=== PATIENT | female | born 1970 | race African-American/Black ===

== ENCOUNTER 2021-10-31 13:44 | Emergency (ER) | payer MEDICAID ==
[~2021-10-31] VITALS: Ht 157.5 cm; Wt 75.0 kg
[2021-10-31 13:57] VITALS: BP 121/85
[2021-10-31 14:32] LABS: BASOPHILS % (AUTO) 0.3 % (0-1); EOSINOPHILS # (AUTO) 0.1 X10'3 (0-0.9); EOSINOPHILS % (AUTO) 1.7 % (0-6); HEMATOCRIT 38.8 % (35.0-45.0); HEMOGLOBIN 12.3 g/dl (12.0-16.0); LYMPHOCYTES # (AUTO) 1.8 X10'3 (1.1-4.8); LYMPHOCYTES % (AUTO) 21.1 % (21-51); MEAN CORPUSCULAR HEMOGLOBIN 26.1 PG (27.0-31.0); MEAN CORPUSCULAR HGB CONC 31.8 g/dL (33.0-36.5); MEAN CORPUSCULAR VOLUME 82.1 FL (78-98); MEAN PLATELET VOLUME 7.8 FL (7.4-10.4); MONOCYTES # (AUTO) 0.9 X10'3 (0-0.9); MONOCYTES % (AUTO) 10.5 % (2-12); NEUTROPHILS # (AUTO) 5.8 X10'3 (1.8-7.7); NEUTROPHILS % (AUTO) 66.4 % (42-75); PLATELET COUNT 349 X10'3 (140-440); RED BLOOD COUNT 4.72 X10'6 (4.20-5.60); RED CELL DISTRIBUTION WIDTH 15.3 % (11.5-14.5); WHITE BLOOD COUNT 8.7 X10'3 (4.5-11.0)
[2021-10-31 14:44] LABS: ALANINE AMINOTRANSFERASE 12 U/L (12-78); ALBUMIN 3.9 G/DL (3.4-5.0); ALKALINE PHOSPHATASE 99 IU/L (46-116); AMYLASE 36 U/L (25-115); ANION GAP 8 (8-16); ASPARTATE AMINO TRANSFERASE 12 U/L (10-37); BILIRUBIN,TOTAL 0.3 MG/DL (0.1-1.0); BLOOD UREA NITROGEN 13 MG/DL (7-18); CALCIUM 10.1 MG/DL (8.5-10.1); CHLORIDE 106 MMOL/L (99-107); GLUCOSE 94 MG/DL (70-104); LIPASE < 50 U/L (73-393); POTASSIUM 3.7 MMOL/L (3.5-5.1); SODIUM 143 MMOL/L (135-145); TOTAL CARBON DIOXIDE 29.3 MMOL/L (24-32); TOTAL PROTEIN 7.9 G/DL (6.4-8.2); eGFR > 90 ML/MIN
[2021-10-31] MEDS ORDERED: ondansetron 4mg rapidly disintigrating tab PO ONE (15:25)
[2021-10-31] MEDS ORDERED: ONDA4TAB12 PO (15:29)
--- NOTE | 2021-10-31 15:56 | NUR ---
po med given
== END 2021-10-31 15:57 | disposition home or self-care (01) ==
LOC: ER 13:45
DX: R11.2 Nausea with vomiting, unspecified (principal); R53.83 Other fatigue; R53.81 Other malaise; R42 Dizziness and giddiness; F41.9 Anxiety disorder, unspecified; F32.A Depression, unspecified; F20.9 Schizophrenia, unspecified; Z56.0 Unemployment, unspecified; Z59.00 Homelessness unspecified; Z88.8 Allergy status to other drugs, medicaments and biological substances; Z79.899 Other long term (current) drug therapy
CPT/HCPCS: 36415; 80053; 82150; 83690; 85025; 93005; 99284

== ENCOUNTER 2021-11-17 01:00 | Emergency (ER) | payer MEDICAID ==
[~2021-11-17 01:00] MED LIST: ONDA4TAB12 PO
[2021-11-17] MEDS ORDERED: FLUO10CA28 PO (11:27)
== END 2021-11-17 01:39 | disposition left against medical advice (07) ==
LOC: ER 01:01
DX: Z76.0 Encounter for issue of repeat prescription (principal); Z53.21 Procedure and treatment not carried out due to patient leaving prior to being seen by health care provider

== ENCOUNTER 2021-11-17 08:38 | Emergency (ER) | payer MEDICAID ==
[~2021-11-17] VITALS: Ht 157.5 cm; Wt 80.0 kg
[2021-11-17] MEDS ORDERED: FLUO10CA28 PO (11:27)
[2021-11-17 11:43] VITALS: BP 135/91
== END 2021-11-17 11:46 | disposition home or self-care (01) ==
LOC: ER 08:39
DX: F20.9 Schizophrenia, unspecified (principal); G47.00 Insomnia, unspecified; Z76.0 Encounter for issue of repeat prescription; F31.9 Bipolar disorder, unspecified; Z59.00 Homelessness unspecified; Z56.0 Unemployment, unspecified; Z88.8 Allergy status to other drugs, medicaments and biological substances; Z79.899 Other long term (current) drug therapy
CPT/HCPCS: 99281

== ENCOUNTER 2021-11-26 13:56 | Emergency (ER) | payer MEDICAID ==
[~2021-11-26] VITALS: Ht 157.5 cm; Wt 176.0 kg
[~2021-11-26 13:56] MED LIST changes: +FLUO10CA28 PO
[2021-11-26 14:00] VITALS: BP 115/76
[2021-11-26] MEDS ORDERED: ibuprofen 200mg tablet PO ONE (14:35)
== END 2021-11-26 15:00 | disposition home or self-care (01) ==
LOC: ER 13:57
DX: M79.604 Pain in right leg (principal); M79.605 Pain in left leg; F31.9 Bipolar disorder, unspecified; F20.9 Schizophrenia, unspecified
CPT/HCPCS: 99282

== ENCOUNTER 2021-11-29 22:48 | Emergency (ER) | payer MEDICAID ==
[~2021-11-29] VITALS: Ht 157.5 cm; Wt 80.0 kg
[2021-11-29 22:52] VITALS: BP 134/87
--- NOTE | 2021-11-30 01:34 | NUR ---
BLOOD SENT TO LAB
[2021-11-30 01:56] LABS: BASOPHILS # (AUTO) 0.1 X10'3 (0-0.2); BASOPHILS % (AUTO) 0.8 % (0-1); EOSINOPHILS # (AUTO) 0.3 X10'3 (0-0.9); EOSINOPHILS % (AUTO) 3.9 % (0-6); HEMATOCRIT 38.7 % (35.0-45.0); HEMOGLOBIN 12.5 g/dl (12.0-16.0); LYMPHOCYTES # (AUTO) 4.2 X10'3 (1.1-4.8); LYMPHOCYTES % (AUTO) 51.1 % (21-51); MEAN CORPUSCULAR HEMOGLOBIN 25.8 PG (27.0-31.0); MEAN CORPUSCULAR HGB CONC 32.3 g/dL (33.0-36.5); MEAN CORPUSCULAR VOLUME 79.9 FL (78-98); MEAN PLATELET VOLUME 8.9 FL (7.4-10.4); MONOCYTES # (AUTO) 0.5 X10'3 (0-0.9); MONOCYTES % (AUTO) 6.3 % (2-12); NEUTROPHILS # (AUTO) 3.1 X10'3 (1.8-7.7); NEUTROPHILS % (AUTO) 37.9 % (42-75); PLATELET COUNT 260 X10'3 (140-440); RED BLOOD COUNT 4.84 X10'6 (4.20-5.60); RED CELL DISTRIBUTION WIDTH 14.7 % (11.5-14.5); WHITE BLOOD COUNT 8.3 X10'3 (4.5-11.0)
[2021-11-30 01:59] LABS: ALANINE AMINOTRANSFERASE 27 U/L (12-78); ALBUMIN/GLOBULIN RATIO 1.1 (1.1-1.5); ALKALINE PHOSPHATASE 77 IU/L (46-116); ANION GAP 6 (8-16); ASPARTATE AMINO TRANSFERASE 19 U/L (10-37); BILIRUBIN,TOTAL 0.4 MG/DL (0.1-1.0); BLOOD UREA NITROGEN 24 MG/DL (7-18); BUN/CREATININE RATIO 31.6 (6.6-38.0); CALCIUM 9.9 MG/DL (8.5-10.1); CHLORIDE 105 MMOL/L (99-107); CREATININE 0.76 MG/DL (0.40-0.90); GLUCOSE 84 MG/DL (70-104); POTASSIUM 3.4 MMOL/L (3.5-5.1); SODIUM 137 MMOL/L (135-145); TOTAL CARBON DIOXIDE 26.2 MMOL/L (24-32); TOTAL PROTEIN 7.6 G/DL (6.4-8.2); eGFR > 90 ML/MIN
[2021-11-30] MEDS ORDERED: CLOT15CR10 TOP (03:10)
== END 2021-11-30 03:19 | disposition home or self-care (01) ==
LOC: ER 22:48
DX: B35.3 Tinea pedis (principal); F31.9 Bipolar disorder, unspecified; F20.9 Schizophrenia, unspecified; Z59.00 Homelessness unspecified
CPT/HCPCS: 71045; 80053; 83880; 85025; 99284

== ENCOUNTER 2021-12-04 19:38 | Emergency (ER) | payer MEDICAID ==
[~2021-12-04] VITALS: Ht 157.5 cm; Wt 68.3 kg
[~2021-12-04 19:38] MED LIST changes: +CLOT15CR10 TOP
[2021-12-04 21:54] LABS: BASOPHILS # (AUTO) 0.1 X10'3 (0-0.2); BASOPHILS % (AUTO) 0.4 % (0-1); EOSINOPHILS # (AUTO) 0.1 X10'3 (0-0.9); EOSINOPHILS % (AUTO) 0.6 % (0-6); HEMATOCRIT 35.3 % (35.0-45.0); HEMOGLOBIN 11.3 g/dl (12.0-16.0); LYMPHOCYTES # (AUTO) 1.8 X10'3 (1.1-4.8); LYMPHOCYTES % (AUTO) 12.6 % (21-51); MEAN CORPUSCULAR HEMOGLOBIN 25.7 PG (27.0-31.0); MEAN CORPUSCULAR VOLUME 80.4 FL (78-98); MEAN PLATELET VOLUME 9.3 FL (7.4-10.4); MONOCYTES % (AUTO) 7.4 % (2-12); NEUTROPHILS # (AUTO) 11.1 X10'3 (1.8-7.7); PLATELET COUNT 264 X10'3 (140-440); RED CELL DISTRIBUTION WIDTH 14.4 % (11.5-14.5); WHITE BLOOD COUNT 14.1 X10'3 (4.5-11.0)
[2021-12-04 22:01] LABS: ALANINE AMINOTRANSFERASE 30 U/L (12-78); ALBUMIN/GLOBULIN RATIO 1.1 (1.1-1.5); ALKALINE PHOSPHATASE 75 IU/L (46-116); ANION GAP 12 (8-16); ASPARTATE AMINO TRANSFERASE 26 U/L (10-37); BILIRUBIN,TOTAL 0.7 MG/DL (0.1-1.0); BLOOD UREA NITROGEN 30 MG/DL (7-18); CALCIUM 9.7 MG/DL (8.5-10.1); CHLORIDE 101 MMOL/L (99-107); CREATININE 0.81 MG/DL (0.40-0.90); GLUCOSE 72 MG/DL (70-104); POTASSIUM 3.4 MMOL/L (3.5-5.1); SODIUM 138 MMOL/L (135-145); TOTAL CARBON DIOXIDE 25.2 MMOL/L (24-32); TOTAL PROTEIN 7.7 G/DL (6.4-8.2); eGFR > 90 ML/MIN
[2021-12-04] MEDS ORDERED: NO HOME MEDS (23:24)
--- NOTE | 2021-12-05 06:30 | NUR ---
PT RESTING ON L SIDE, EFFORTLESS RESPIRATIONS OBSERVED.
--- NOTE | 2021-12-05 08:10 | NUR ---
Pt provided breakfast tray and set up next to bed.
--- NOTE | 2021-12-05 11:23 | NUR ---
Pt brought to EROF from main ER and placed in bed 26.
--- NOTE | 2021-12-05 13:30 | NUR ---
Pt woke and ate lunch. Pt speech is disorganized with flight of ideas. Pt appears cautious and paranoid. She returned to sleep.
--- NOTE | 2021-12-05 13:45 | NUR ---
Urine obtained and sent to lab.
[2021-12-05 13:58] LABS: URINE AMPHETAMINE SCREEN NEGATIVE (Neg); URINE BARBITUATE SCREEN NEGATIVE (Neg); URINE BENZODIAZEPINES SCREEN NEGATIVE (Neg); URINE CANNABINOID SCREEN NEGATIVE (Neg); URINE COCAINE SCREEN NEGATIVE (Neg); URINE METHADONE SCREEN NEGATIVE (Neg); URINE OPIATE SCREEN NEGATIVE (Neg); URINE PHENCYCLIDINE SCREEN NEGATIVE (Neg)
[2021-12-05 14:33] LABS: CLARITY,URINE SLIGHTLY CLOUDY (Clear); COLOR,URINE YELLOW (Yellow); GLUCOSE, URINE NEGATIVE (Neg); KETONES,URINE >=80 mg/dl (Neg); LEUKOCYTE ESTERASE ,URINE NEGATIVE (Neg); NITRITES, URINE NEGATIVE (Neg); OCCULT BLOOD,URINE TRACE-INTACT (Neg); PROTEIN,URINE NEGATIVE (Neg)
[2021-12-05 14:34] LABS: UA COLLECTION TYPE OTHER
[2021-12-05 14:42] LABS: BACTERIA,URINE FEW /HPF (Neg); MUCUS STRANDS NONE SEEN /LPF (Neg); RBC,URINE 0-2 /HPF (0-2); SQUAMOUS EPITHELIAL CELL,UR MODERATE /LPF (FEW); WBC,URINE 0-4 /HPF (0-4)
--- NOTE | 2021-12-05 15:13 | NUR ---
Pt remains in bed sleeping w/o distress.
--- NOTE | 2021-12-05 17:46 | NUR ---
Pt seen by [facility] and placed on a 5150 hold. Pt remains in bed resting and sleeping intermitently.
--- NOTE | 2021-12-05 19:50 | NUR ---
Patient presents with disorganized thought..Paranoia is present. Patient reminded that she met this magnetic tape typewriter operator in triage, the patient denies this. The patient was offered food, the patient declines. She presents as disheveled looking.
--- NOTE | 2021-12-05 21:18 | NUR ---
Patient awoke and was medication compliant. Patient consumed an Ensure drink and returned to sleep.
--- NOTE | 2021-12-05 21:29 | NUR ---
Patient remains awake and disorganized. She accepts an apple juice but will not allow this database report writer to open it for her.
--- NOTE | 2021-12-06 00:57 | NUR ---
Nurse to Nurse given to CHARY Andrade at [facility] in [place]. A urine HCG was ordered for placeent.
[2021-12-06 01:22] LABS: URINE HCG NEGATIVE (NEG)
--- NOTE | 2021-12-06 01:51 | NUR ---
Patient is desheviled, hypomanic, dellusional, paranoid too. She mostly exhibits disorganized thought. Patient is uncooperative with care. Patient has not slept for more than a few minutes at a time since arriving in the ED. Dr Davis will be consulted.
[2021-12-06] MEDS ORDERED: OLANZapine **IM** 10 mg inj. IM ONE (02:05)
[2021-12-06] MEDS ORDERED: LORazepam 2 mg/ml vial IM ONE (02:05)
[2021-12-06] MEDS ORDERED: diphenhydrAMINE 50 mg/ml inj IM ONE (02:05)
--- NOTE | 2021-12-06 02:39 | NUR ---
Patient cooperated with IM Ativan, Zyprexa, and Benadryl.
--- NOTE | 2021-12-06 03:06 | NUR ---
Patient standing in room, she is swearing at staff. Sedation has not taken effect yet.
--- NOTE | 2021-12-06 03:38 | NUR ---
Patient has finally gone to sleep. No distress noted.
--- NOTE | 2021-12-06 18:41 | NUR ---
PT RESTING IN BED WITH NO SIGN OF DISTRESS, EVEN UNLABORED RESPIRATIONS
--- NOTE | 2021-12-06 19:29 | NUR ---
pt did not eat any of her food tray stating "i didn't ask for any of this, they gave me nothing i like, BYE!"
--- NOTE | 2021-12-06 23:00 | NUR ---
PT RESTING IN BED
--- NOTE | 2021-12-07 04:02 | NUR ---
PT RESTING IN BED WITH HEAD AT FOOT OF BED AND BLANKETS OVER HEAD. PT WAS UP FOR PERIODS OF TIME AND WAS RAMBLING AND YELLING "BITCH" AT STAFF THEY WOULD WALK BY. PT IS NOW SEEMING TO BE ASLEEP WITH EVEN UNLABORED RESPIRATIONS
--- NOTE | 2021-12-07 06:50 | NUR ---
Recieved pt. ambulatory, slightly agitated, responding to IS, pacing and paranoid. Provider notified.
--- NOTE | 2021-12-07 08:50 | NUR ---
Pt. pacing , responding to IS, walking by scientific writer and singing lodly while making intense eye contact. Pt. appears to be elevating.
[2021-12-07] MEDS ORDERED: LORazepam 1 MG tablet PO ONE (09:20)
[2021-12-07] MEDS: OLANZapine 2.5MG tablet PO SCH (09:26)
--- NOTE | 2021-12-07 10:50 | NUR ---
Pt. has become hard to be redirected and using an elevated voice.Provider notified.
[2021-12-07] MEDS ORDERED: diphenhydrAMINE 25mg capsule PO ONE (11:10)
--- NOTE | 2021-12-07 12:50 | NUR ---
Pt. awake and drinking water at the bedside, no c/o pain, not responding to IS
--- NOTE | 2021-12-07 14:50 | NUR ---
Pt. asleep laying on her Right side, no distress noted.
--- NOTE | 2021-12-07 16:50 | NUR ---
Pt. asleep on her back in her bed, no s/sx of distress, normal respiratory pattern
--- NOTE | 2021-12-07 19:23 | NUR ---
Patient speaking to self underneath blankets, responding to I/S. Spoke to Dr Hernández about pt lack of sleep and present behavior, 10mg Zyprexa ordered for 2100.Pt currently lying in bed quietly under blankets.
[2021-12-07] MEDS ORDERED: OLANZapine 2.5MG tablet PO ONE (21:00)
--- NOTE | 2021-12-07 21:12 | NUR ---
Patient lying down quietly underneath blankets.
--- NOTE | 2021-12-07 22:54 | NUR ---
The patient appears to be sleeping at this time.
--- NOTE | 2021-12-08 02:52 | NUR ---
Thge patient appears to be sleepimg at this time.
--- NOTE | 2021-12-08 04:07 | NUR ---
Patient woke up demanding to see her doctor. Patient was reminded that it was 0400 in the morning. Patient cussed at staff and then got up to make bed while mumbling to self.
[2021-12-08] MEDS: OLANZapine 2.5MG tablet PO PRN ×2 (04:48→20:51)
--- NOTE | 2021-12-08 04:54 | NUR ---
Patient behavior escalated. Patient demanded a chair be put in her room at 0430 and began dragging it acrosss the floor. Patient then refused to take PRN Zyprexa ordered by for aggkevin. Patient eventually conceded and took Zyprexa and laid down soon after.
--- NOTE | 2021-12-08 06:43 | NUR ---
Received Pt in bed awake with sheet over her head. Pt rocking and mumbling to self at times.
--- NOTE | 2021-12-08 09:05 | NUR ---
Pt ate part of her breakfast and refused AM med. Pt mumbles to self as she walks around and is rude, often calling staff names and cursing. Pt not aggressive toward staff or others.
[2021-12-08] MEDS: OLANZapine 2.5MG tablet PO SCH (09:20)
--- NOTE | 2021-12-08 11:20 | NUR ---
Pt in bed with sheet on her head and resting.
--- NOTE | 2021-12-08 14:05 | NUR ---
Pt pacing halls talking to self. This RN spoke with nurse from [facility] r/t possible acceptance.
--- NOTE | 2021-12-08 16:22 | NUR ---
Pt pacing around unit and mumbling to self. Pt not aggressive, but stares at staff as she walks by glaringly.
--- NOTE | 2021-12-08 19:01 | NUR ---
PT IS RUBBING TOOTHPASTE IN HER HAIR. WHEN RN ASKED IF SHE WANTED SHAMPOO, PT BECAME AGITATED AND SAID "MIND YOUR BUSINESS! BYE!" IN AN AGGRESSIVE MANER
--- NOTE | 2021-12-08 20:51 | NUR ---
SECURITY AT BEDSIDE FOR MED PASS. PT CALLED RN "BITCH" SEVERAL TIMES. PT ULTIMATELY TOOK MEDICATIONS AND RN BROUGHT PT A SNACK.
--- NOTE | 2021-12-08 21:00 | NUR ---
PT IS UP AND PACING AND MUTTERING "BITCH" UNDER HER VOICE
--- NOTE | 2021-12-08 21:18 | NUR ---
PT IS NOW BACK IN BED WITH BLANKET OVER HER HEAD. SHE IS NO LONGER MUTTERING. EQUAL RISE AND FALL OF CHEST NOTED
--- NOTE | 2021-12-08 21:52 | NUR ---
PT AWAKE, LAYING IN BED, AND SAYING PROFANITIES TO NURSE. "FUCK YOU BITCH" "COME TALK TO ME" "BRING ME MORE SONIYA CORNEJO BITKRISTA." NURSE IGNORED PATIENT'S ATTENTION SEEKING BEHAVIOR AND SHE COVERED HER HEAD WITH HER BLANKET AND LAID BACK DOWN. Addendum: 12/08/21 at 2157 by KISHA PT IS STILL TALKING ACROSS ROOM AND IS HAVING PARANOID DELUSIONS THAT RN AND TECH ARE TALKING ABOUT HER WHEN WE ARE NOT TALKING AT ALL
--- NOTE | 2021-12-08 22:54 | NUR ---
Patient slept for a short while and is now awake and yelling "bitch shut the fuck up" to the nurses station for no apparent reason. She is rambling about other nonsensical things but remains laying in bed with her blanket over her head.
--- NOTE | 2021-12-08 23:42 | NUR ---
Patient was up to use the restroom and is now back in bed
--- NOTE | 2021-12-09 00:03 | NUR ---
Patient is up and pacing and staring at nurse and tech stating "don't worry about it."
--- NOTE | 2021-12-09 02:00 | NUR ---
Patient is sleeping on right side, equal rise and fall of chest noted
--- NOTE | 2021-12-09 04:28 | NUR ---
Patient laying in bed with blanket over her head. Equal rise and fall of chest noted
--- NOTE | 2021-12-09 05:22 | NUR ---
Patient is up walking and seems calm. She is looking down as compared to the challenging eye contact she usually makes when she paces.
--- NOTE | 2021-12-09 05:40 | NUR ---
Tech attempted to take vitals on pt and pt stated "Vitals? I don't think so. GOODBYE" and refused vitals
--- NOTE | 2021-12-09 06:30 | NUR ---
PATIENT RECEIVED SLEEPING IN HER ROOM AT CHANGE OF SHIFT. RESPIRATIONS EVEN, UNLABORED. NO S/S OF DISTRESS. WILL CONTINUE TO MONITOR.
--- NOTE | 2021-12-09 08:35 | NUR ---
PATIENT OBSERVED PACING AROUND THE UNIT NOTED RESPONDING TO INTERNAL STIMULI. PATIENT NOTED STATING "BITCH" REPEATEDLY TOWARD STAFF. PATIENT ALSO NOTED GLARING AT STAFF, MAKING DIRECT EYE CONTACT WHILE PACING PAST NURSES STATION. SHE WAS PROVIDED WITH A MEAL TRAY TO HER ROOM. NO COMPLAINTS OR CHANGES NOTED AT THIS TIME.
[2021-12-09] MEDS: OLANZapine 2.5MG tablet PO SCH (09:37)
--- NOTE | 2021-12-09 10:30 | NUR ---
PATIENT CONTINUES PACING THROUGHOUT THE UNIT OBSERVED RESPONDING TO INTERNAL STIMULI. SHE IS NOTED TO BE IRRITABLE WHEN APPROACHED BY STAFF, STATING "FINE BITCH!" TOWARD STAFF. PATIENT REQUIRING REDIRECTION AWAY FROM ANOTHER PEER ON THE UNIT AFTER CALLING PEER A BITCH. SHE IS NOTED TO BE INAPPROPRIATE YET EASILY REDIRECTABLE.
--- NOTE | 2021-12-09 12:36 | NUR ---
PATIENT IS OBSERVED RESTING IN HER BED WITH A BLANKET OVER HER HEAD. PATIENT OBSERVED TALKING TO HERSELF UNDER THE BLANKET, MAKING NONSENSICAL STATEMENTS. RESPIRATIONS EVEN, UNLABORED. NO S/S OF DISTRESS.
--- NOTE | 2021-12-09 14:30 | NUR ---
PATIENT IS OBSERVED PACING AROUND THE UNIT CURSING AND STARING AT STAFF. PATIENT REQUIRES REDIRECTION BACK TO HER ROOM. WILL CONTINUE TO MONITOR.
[2021-12-09 14:38] VITALS: BP 146/87
--- NOTE | 2021-12-09 14:58 | NUR ---
RECEIVED CALL FROM [facility] IN [place] WITH ACCEPTING INFORMATION. PATIENT ACCEPTED BY DR. ALDO RYAN AT 1450. PENDING TRANSPORTATION TIME.
[2021-12-09] MEDS ORDERED: LORazepam 1 MG tablet PO ONE (15:10)
[2021-12-09] MEDS: OLANZapine 2.5MG tablet PO PRN (15:13)
--- NOTE | 2021-12-09 15:47 | NUR ---
PATIENT PICKED UP FROM ER OVERFLOW FOR TRANSFER AT APPROXIMATELY 1547. PATIENT BEING TRANSFERRED TO [facility] IN [place] BY [facility] SUPERVISOR PHOTOSTAT. PERSONAL BELONGINGS RETURNED TO PATIENT. ALLOWED OPPORTUNITY FOR ALL QUESTIONS TO BE ANSWERED. PATIENT ESCORTED FROM UNIT BY HOSPITAL SECURITY AND [facility] FLIGHT OPERATIONS ENGINEER. NO S/S OF DISTRESS NOTED. PATIENT PROVIDED WITH A HOMELESS SAC LUNCH FOR CAR RIDE TO [place]. SHE LEFT THE HOSPITAL WITHOUT INCIDENT.
== END 2021-12-09 15:47 ==
LOC: ER 19:38
DX: F20.9 Schizophrenia, unspecified (principal); Z20.822 Contact with and (suspected) exposure to COVID-19; I10 Essential (primary) hypertension; F41.9 Anxiety disorder, unspecified; F32.A Depression, unspecified; Z56.0 Unemployment, unspecified; Z59.00 Homelessness unspecified; Z88.8 Allergy status to other drugs, medicaments and biological substances; Z79.899 Other long term (current) drug therapy; Z91.14 Patient's other noncompliance with medication regimen
CPT/HCPCS: 36415; 80053; 80305; 81001; 81025; 84443; 85025; 87635; 96372; 99285; C9803

== ENCOUNTER → 2021-12-31 | Emergency (ER) | payer SELFPAY ==
[~2021-12-31] VITALS: Ht 157.5 cm; Wt 68.1 kg
[~2021-12-31] MED LIST changes: -CLOT15CR10 TOP; -FLUO10CA28 PO; +NO HOME MEDS; -ONDA4TAB12 PO
[2021-12-31 20:51] VITALS: BP 112/72
--- NOTE | 2021-12-31 21:50 | NUR ---
NOT IN LOBBY 1
--- NOTE | 2021-12-31 22:35 | NUR ---
NOT IN LOBBY 2
--- NOTE | 2022-01-01 00:25 | NUR ---
NOT IN LOBBY 3
== END | disposition left against medical advice (07) ==
LOC: ER 20:47
DX: R45.851 Suicidal ideations (principal); Z53.21 Procedure and treatment not carried out due to patient leaving prior to being seen by health care provider

== ENCOUNTER 2022-01-01 04:54 | Emergency (ER) | payer MEDICAID ==
[~2022-01-01] VITALS: Ht 157.5 cm; Wt 68.2 kg
[2022-01-01 06:29] VITALS: BP 131/86
--- NOTE | 2022-01-01 06:37 | NUR ---
PT UNABLE TO GIVE URINE SAMPLE AT THIS TIME
[2022-01-01 07:53] LABS: CLARITY,URINE CLEAR (Clear); COLOR,URINE YELLOW (Yellow); GLUCOSE, URINE NEGATIVE (Neg); KETONES,URINE 15 mg/dl (Neg); LEUKOCYTE ESTERASE ,URINE SMALL (Neg); NITRITES, URINE NEGATIVE (Neg); OCCULT BLOOD,URINE SMALL (Neg); PH,URINE 5.5 (4.8-8.0); PROTEIN,URINE NEGATIVE (Neg); UROBILINOGEN,URINE 0.2 E.U/dL (0.2-1.0)
[2022-01-01 07:54] LABS: URINE HCG NEGATIVE (NEG)
[2022-01-01 08:05] LABS: UA COLLECTION TYPE CLN CATCH MIDSTREAM
[2022-01-01 08:29] LABS: SQUAMOUS EPITHELIAL CELL,UR MANY /LPF (FEW)
[2022-01-01 08:30] LABS: BACTERIA,URINE 1+ /HPF (Neg); HYALINE CASTS 0-3 /LPF (NEGATIVE); MUCUS STRANDS MODERATE /LPF (Neg); RBC,URINE 0-2 /HPF (0-2)
== END 2022-01-01 09:42 | disposition home or self-care (01) ==
LOC: ER 04:55
DX: R30.0 Dysuria (principal); I10 Essential (primary) hypertension; F31.9 Bipolar disorder, unspecified; Z56.0 Unemployment, unspecified; F20.9 Schizophrenia, unspecified; Z59.00 Homelessness unspecified; Z88.8 Allergy status to other drugs, medicaments and biological substances
CPT/HCPCS: 81001; 81025; 99283

== ENCOUNTER 2022-01-02 00:11 | Emergency (ER) | payer MEDICAID ==
[~2022-01-02] VITALS: Ht 157.5 cm; Wt 84.1 kg
== END 2022-01-02 00:37 | disposition left against medical advice (07) ==
LOC: ER 00:12
DX: R63.8 Other symptoms and signs concerning food and fluid intake (principal); Z53.21 Procedure and treatment not carried out due to patient leaving prior to being seen by health care provider

== ENCOUNTER 2022-01-06 21:35 | Emergency (ER) | payer MEDICAID ==
[~2022-01-06] VITALS: Ht 157.5 cm; Wt 77.3 kg
[2022-01-06 21:39] VITALS: BP 134/88
== END 2022-01-07 02:22 | disposition left against medical advice (07) ==
LOC: ER 21:36
DX: F29 Unspecified psychosis not due to a substance or known physiological condition (principal); Z53.21 Procedure and treatment not carried out due to patient leaving prior to being seen by health care provider

== ENCOUNTER 2022-03-09 03:32 | Emergency (ER) | payer SELFPAY ==
[~2022-03-09] VITALS: Ht 157.5 cm; Wt 77.3 kg
[2022-03-09 03:56] VITALS: BP 142/88
== END 2022-03-09 04:05 | disposition left against medical advice (07) ==
LOC: ER 03:33
DX: Z00.8 Encounter for other general examination (principal); Z53.21 Procedure and treatment not carried out due to patient leaving prior to being seen by health care provider

== ENCOUNTER 2022-04-02 06:11 | Emergency (ER) | payer SELFPAY ==
[~2022-04-02] VITALS: Ht 157.5 cm; Wt 71.3 kg
[2022-04-02 06:38] VITALS: BP 135/77
== END 2022-04-02 15:39 | disposition left against medical advice (07) ==
LOC: ER 06:12
DX: M25.571 Pain in right ankle and joints of right foot (principal); Z53.21 Procedure and treatment not carried out due to patient leaving prior to being seen by health care provider

== ENCOUNTER 2022-04-08 23:12 | Emergency (ER) | payer SELFPAY ==
[~2022-04-08] VITALS: Ht 162.6 cm; Wt 59.1 kg
[2022-04-08 23:22] VITALS: BP 146/92
== END 2022-04-09 07:12 | disposition left against medical advice (07) ==
LOC: ER 23:12
DX: Z00.00 Encounter for general adult medical examination without abnormal findings (principal); Z53.21 Procedure and treatment not carried out due to patient leaving prior to being seen by health care provider

== ENCOUNTER 2022-04-22 03:35 | Emergency (ER) | payer SELFPAY ==
[~2022-04-22] VITALS: Ht 157.5 cm; Wt 72.7 kg
[2022-04-22 04:25] VITALS: BP 138/88
== END 2022-04-22 10:00 | disposition left against medical advice (07) ==
LOC: ER 03:36
DX: F20.9 Schizophrenia, unspecified (principal); J45.909 Unspecified asthma, uncomplicated; I10 Essential (primary) hypertension; F41.9 Anxiety disorder, unspecified; Z56.0 Unemployment, unspecified; Z59.00 Homelessness unspecified; Z88.8 Allergy status to other drugs, medicaments and biological substances; Z79.899 Other long term (current) drug therapy
CPT/HCPCS: 99281

== ENCOUNTER 2022-04-23 05:42 | Emergency (ER) | payer SELFPAY ==
[~2022-04-23] VITALS: Ht 157.5 cm; Wt 58.5 kg
[2022-04-23 07:32] VITALS: BP 120/75
== END 2022-04-23 07:57 | disposition home or self-care (01) ==
LOC: ER 05:43
DX: F20.9 Schizophrenia, unspecified (principal); I10 Essential (primary) hypertension; Z88.8 Allergy status to other drugs, medicaments and biological substances; Z56.0 Unemployment, unspecified; Z59.00 Homelessness unspecified
CPT/HCPCS: 99281; 99283

== ENCOUNTER 2022-05-02 22:19 | Emergency (ER) | payer SELFPAY ==
[~2022-05-02] VITALS: Ht 152.4 cm; Wt 67.0 kg
[2022-05-02 23:22] VITALS: BP 133/73
[2022-05-02 23:48] LABS: BASOPHILS # (AUTO) 0.1 X10'3 (0-0.2); BASOPHILS % (AUTO) 1.5 % (0-1); EOSINOPHILS # (AUTO) 0.4 X10'3 (0-0.9); EOSINOPHILS % (AUTO) 4.3 % (0-6); HEMATOCRIT 34.4 % (35.0-45.0); HEMOGLOBIN 11.3 g/dl (12.0-16.0); LYMPHOCYTES # (AUTO) 4.3 X10'3 (1.1-4.8); MEAN CORPUSCULAR HEMOGLOBIN 26.6 PG (27.0-31.0); MEAN CORPUSCULAR HGB CONC 32.8 g/dL (33.0-36.5); MEAN CORPUSCULAR VOLUME 81.1 FL (78-98); MEAN PLATELET VOLUME 7.8 FL (7.4-10.4); MONOCYTES # (AUTO) 0.7 X10'3 (0-0.9); MONOCYTES % (AUTO) 7.6 % (2-12); NEUTROPHILS # (AUTO) 3.5 X10'3 (1.8-7.7); NEUTROPHILS % (AUTO) 38.6 % (42-75); PLATELET COUNT 334 X10'3 (140-440); RED BLOOD COUNT 4.24 X10'6 (4.20-5.60); RED CELL DISTRIBUTION WIDTH 14.9 % (11.5-14.5)
[2022-05-03 00:05] LABS: ALANINE AMINOTRANSFERASE 16 U/L (12-78); ALBUMIN 3.6 G/DL (3.4-5.0); ALBUMIN/GLOBULIN RATIO 1.1 (1.1-1.5); ALKALINE PHOSPHATASE 70 IU/L (46-116); ANION GAP 13 (8-16); ASPARTATE AMINO TRANSFERASE 21 U/L (10-37); BILIRUBIN,TOTAL 0.2 MG/DL (0.1-1.0); BLOOD UREA NITROGEN 24 MG/DL (7-18); BUN/CREATININE RATIO 30.4 (6.6-38.0); CALCIUM 9.6 MG/DL (8.5-10.1); CHLORIDE 108 MMOL/L (99-107); CREATININE 0.79 MG/DL (0.40-0.90); ETHANOL < 0.010 GM/DL (0.0-0.010); GLUCOSE 108 MG/DL (70-104); POTASSIUM 3.5 MMOL/L (3.5-5.1); SODIUM 146 MMOL/L (135-145); TOTAL CARBON DIOXIDE 24.8 MMOL/L (24-32); TOTAL PROTEIN 6.9 G/DL (6.4-8.2); eGFR > 90 ML/MIN
--- NOTE | 2022-05-03 00:22 | NUR ---
The patient moved to bed 20 in the ER overflow. She was easily agitated. SHe reports A/V hallucinations. She was paranoid and guarded and refused to answer questions after only a few minutes. She stated that she has taken medications in the past but not recently. When asked what she had been on in the past she stated depakote but would not elaborate. She is unable to verbalize a plan for food, prison or clothing.
--- NOTE | 2022-05-03 00:49 | NUR ---
The patient is easily agitated and currently is refusing to give urine sample at this time.
[2022-05-03] MEDS ORDERED: olanzapine 10mg tablet PO SCH (00:50)
--- NOTE | 2022-05-03 01:06 | NUR ---
The patient is loud and uncooperative. She refused medications and stated that the doctor was a real doctor.
--- NOTE | 2022-05-03 01:10 | NUR ---
Patient hyperverbal and making bizarre statements. "I'm not homosexual. I'm not bisexual. I'm not even curious"
--- NOTE | 2022-05-03 01:13 | NUR ---
made aware that the patient refused medications.
--- NOTE | 2022-05-03 02:02 | NUR ---
The patient appears to be sleeping
--- NOTE | 2022-05-03 03:23 | NUR ---
The patient appears to be sleeping
--- NOTE | 2022-05-03 03:37 | NUR ---
PATIENT'S PACKET WAS SENT TO [facility].
--- NOTE | 2022-05-03 05:00 | NUR ---
The patient is resting on her bed. She is periodically heard talking to herself.
--- NOTE | 2022-05-03 05:07 | NUR ---
The patient refused her am vital signs and was angry when approached.
--- NOTE | 2022-05-03 06:24 | NUR ---
Patient laying in bed on her left side with sheet over her head. No distress observed. Continue to monitor.
--- NOTE | 2022-05-03 07:48 | NUR ---
Patient sitting up in bed eating breakfast. Still pending a urine. RN has a hat in the toilet awaiting patient Continue to monitor.
--- NOTE | 2022-05-03 07:53 | NUR ---
Patient eating breakfast and appears to be responding to internal stimuli. Continue to monitor.
--- NOTE | 2022-05-03 09:10 | NUR ---
Patient placed on a 5150 by OANH Aguilar. Patient appears very disorganized and responding to internal stimuli. Continue to monitor.
--- NOTE | 2022-05-03 10:37 | NUR ---
Patient sitting in bed and gets up often to pace. Patient was making boop, beep sounds and also appears to be responding to internal stimuli. Continue to monitor.
--- NOTE | 2022-05-03 12:20 | NUR ---
Patient eating lunch. No distress observed. Continue to monitor.
--- NOTE | 2022-05-03 14:09 | NUR ---
Patient pacing and sitting in her room. Patient is a little agitated. Continue to monitor.
--- NOTE | 2022-05-03 16:55 | NUR ---
Patient watching T.V. No distress observed. Continue to monitor.
[2022-05-03 17:32] LABS: CLARITY,URINE SLIGHTLY CLOUDY (Clear); COLOR,URINE YELLOW (Yellow); GLUCOSE, URINE NEGATIVE (Neg); KETONES,URINE NEGATIVE (Neg); LEUKOCYTE ESTERASE ,URINE NEGATIVE (Neg); NITRITES, URINE NEGATIVE (Neg); OCCULT BLOOD,URINE NEGATIVE (Neg); PROTEIN,URINE NEGATIVE (Neg); URINE HCG NEGATIVE (NEG); UROBILINOGEN,URINE 0.2 E.U/dL (0.2-1.0)
[2022-05-03 17:33] LABS: UA COLLECTION TYPE CLN CATCH MIDSTREAM
--- NOTE | 2022-05-03 17:35 | NUR ---
Patient in her room at the side of the bed. Patient's scarf is off. RN asked to look at patient's hair. Patient got angry and would not let RN look closely at hair. RN looking for any infestation. None seen but only from a distance and only able to see the front of her hair. It look like patient is losing some of her hair. RN got called a bitch for wanting to see patient's hair. Continue to monitor.
[2022-05-03 17:49] LABS: BACTERIA,URINE FEW /HPF (Neg); MUCUS STRANDS FEW /LPF (Neg); RBC,URINE 0-2 /HPF (0-2); SQUAMOUS EPITHELIAL CELL,UR MANY /LPF (FEW); WBC,URINE 0-4 /HPF (0-4)
[2022-05-03 18:03] LABS: URINE AMPHETAMINE SCREEN NEGATIVE (Neg); URINE BARBITUATE SCREEN NEGATIVE (Neg); URINE BENZODIAZEPINES SCREEN NEGATIVE (Neg); URINE CANNABINOID SCREEN NEGATIVE (Neg); URINE COCAINE SCREEN NEGATIVE (Neg); URINE METHADONE SCREEN NEGATIVE (Neg); URINE OPIATE SCREEN NEGATIVE (Neg); URINE PHENCYCLIDINE SCREEN NEGATIVE (Neg)
--- NOTE | 2022-05-03 18:26 | NUR ---
Assumed care, pt sitting up in bed eating dinner and watching tv. Pt is talking and laughing
--- NOTE | 2022-05-03 20:05 | NUR ---
Pt sitting in bed watching tv and talking to herself. Pt is pleasant and cooperative.
--- NOTE | 2022-05-03 20:32 | NUR ---
Recieved call from [facility], they have accepted pt and will call [facility] office to arrange transportation for tommorow morning. Pt is in bed talking loudly.
--- NOTE | 2022-05-03 20:34 | NUR ---
pts bed is unmade and she has a dirty food tray at bedside. Pt states she is not done eating and will make her own bed when she wants to make it. Pt doesnt want to take any meds.
--- NOTE | 2022-05-03 22:11 | NUR ---
Pt sitting in bed, sitting quietly listening to music. Pt states she doesnt want any meds for sleep.
--- NOTE | 2022-05-04 00:25 | NUR ---
Pt laying in bed sitting quietly listening to music.
--- NOTE | 2022-05-04 02:36 | NUR ---
Pt was up to use the bathroom and TV was put away. Pt is upset about this and cussing and pacing. Pt however is directable and returns to her bed when asked. Pt states she does not want medications. Pt is currently having a snack.
--- NOTE | 2022-05-04 03:15 | NUR ---
pt is asleep, snoring quietly. rr 16. No s/s distress
--- NOTE | 2022-05-04 04:19 | NUR ---
Pt is laying on her right side, appears to be sleeping. no s/s distress.
--- NOTE | 2022-05-04 05:01 | NUR ---
Pt sitting quietly in bed, awake. States "I know this is a psyche whitehead."
--- NOTE | 2022-05-04 06:50 | NUR ---
Patient talking nonstop. Patient is redirectable for a short period of time and starts up again. Continue to monitor.
--- NOTE | 2022-05-04 08:15 | NUR ---
Patient eating breakfast. No distress observed. Continue to monitor.
== END 2022-05-04 09:27 ==
LOC: ER 22:20
DX: F20.9 Schizophrenia, unspecified (principal); Z20.822 Contact with and (suspected) exposure to COVID-19; I10 Essential (primary) hypertension; Z88.8 Allergy status to other drugs, medicaments and biological substances; Z56.0 Unemployment, unspecified; Z59.00 Homelessness unspecified
CPT/HCPCS: 36415; 80053; 80305; 80320; 81001; 81025; 85025; 87811; 99283; 99285

== ENCOUNTER 2022-05-20 12:05 | Emergency (ER) | payer MEDICAID ==
[~2022-05-20] VITALS: Ht 157.5 cm; Wt 65.9 kg
[2022-05-20 12:43] LABS: BASOPHILS # (AUTO) 0.1 X10'3 (0-0.2); BASOPHILS % (AUTO) 1.1 % (0-1); EOSINOPHILS # (AUTO) 0.3 X10'3 (0-0.9); EOSINOPHILS % (AUTO) 4.3 % (0-6); HEMATOCRIT 36.7 % (35.0-45.0); HEMOGLOBIN 11.6 g/dl (12.0-16.0); LYMPHOCYTES # (AUTO) 3.1 X10'3 (1.1-4.8); LYMPHOCYTES % (AUTO) 48.2 % (21-51); MEAN CORPUSCULAR HEMOGLOBIN 25.9 PG (27.0-31.0); MEAN CORPUSCULAR HGB CONC 31.5 g/dL (33.0-36.5); MEAN CORPUSCULAR VOLUME 82.2 FL (78-98); MEAN PLATELET VOLUME 7.4 FL (7.4-10.4); MONOCYTES # (AUTO) 0.5 X10'3 (0-0.9); MONOCYTES % (AUTO) 7.7 % (2-12); NEUTROPHILS # (AUTO) 2.5 X10'3 (1.8-7.7); NEUTROPHILS % (AUTO) 38.7 % (42-75); PLATELET COUNT 339 X10'3 (140-440); RED BLOOD COUNT 4.47 X10'6 (4.20-5.60); RED CELL DISTRIBUTION WIDTH 15.1 % (11.5-14.5); WHITE BLOOD COUNT 6.3 X10'3 (4.5-11.0)
[2022-05-20 12:57] LABS: ALANINE AMINOTRANSFERASE 22 U/L (12-78); ALBUMIN 3.5 G/DL (3.4-5.0); ALKALINE PHOSPHATASE 67 IU/L (46-116); ANION GAP 5 (8-16); ASPARTATE AMINO TRANSFERASE 18 U/L (10-37); BILIRUBIN,TOTAL 0.2 MG/DL (0.1-1.0); BLOOD UREA NITROGEN 17 MG/DL (7-18); BUN/CREATININE RATIO 32.7 (6.6-38.0); CALCIUM 9.4 MG/DL (8.5-10.1); CHLORIDE 108 MMOL/L (99-107); CREATININE 0.52 MG/DL (0.40-0.90); GLUCOSE 82 MG/DL (70-104); POTASSIUM 3.8 MMOL/L (3.5-5.1); SODIUM 143 MMOL/L (135-145); TOTAL CARBON DIOXIDE 29.6 MMOL/L (24-32); TOTAL PROTEIN 6.9 G/DL (6.4-8.2); eGFR > 90 ML/MIN
[2022-05-20 13:28] LABS: ETHANOL < 0.010 GM/DL (0.0-0.010)
--- NOTE | 2022-05-20 14:30 | NUR ---
Pt brought to EROF from main ER and placed in bed 25.
--- NOTE | 2022-05-20 14:57 | NUR ---
tech collected pt belongings from pt, pt got confrentational towards tech over pt belongings, tech allowed RN to finish collecting pt belongings. RN allowed pt to have their flip flops and beanie, tech inventoried pt belongings and placed them into room 27 with the corresponding locker to room number. No belongings were taken to the safe.
--- NOTE | 2022-05-20 15:22 | NUR ---
Attempted to get Hx an evaluate what meds Pt has been on. Pt became irritable; stated "medication is poison" and refused to talk. Pt talking to self periodically. Currently in bed area and understands that UA is needed.
[2022-05-20 17:41] LABS: URINE HCG NEGATIVE (NEG)
--- NOTE | 2022-05-20 17:45 | NUR ---
Pt pacing a bit and mumbling to self at times. Pt able to provide urine and was taken to lab. Pt in bed watching TV at this time.
[2022-05-20 17:47] LABS: CLARITY,URINE CLEAR (Clear); COLOR,URINE YELLOW (Yellow); GLUCOSE, URINE NEGATIVE (Neg); KETONES,URINE NEGATIVE (Neg); LEUKOCYTE ESTERASE ,URINE SMALL (Neg); NITRITES, URINE NEGATIVE (Neg); OCCULT BLOOD,URINE NEGATIVE (Neg); PROTEIN,URINE NEGATIVE (Neg); UROBILINOGEN,URINE 0.2 E.U/dL (0.2-1.0)
[2022-05-20 17:51] LABS: UA COLLECTION TYPE VOIDED; URINE AMPHETAMINE SCREEN NEGATIVE (Neg); URINE BARBITUATE SCREEN NEGATIVE (Neg); URINE BENZODIAZEPINES SCREEN NEGATIVE (Neg); URINE CANNABINOID SCREEN NEGATIVE (Neg); URINE COCAINE SCREEN NEGATIVE (Neg); URINE METHADONE SCREEN NEGATIVE (Neg); URINE OPIATE SCREEN NEGATIVE (Neg); URINE PHENCYCLIDINE SCREEN NEGATIVE (Neg)
[2022-05-20 18:09] LABS: SQUAMOUS EPITHELIAL CELL,UR MANY /LPF (FEW)
[2022-05-20 18:10] LABS: BACTERIA,URINE FEW /HPF (Neg); RBC,URINE NONE SEEN /HPF (0-2); WBC,URINE 0-4 /HPF (0-4)
--- NOTE | 2022-05-20 19:09 | NUR ---
PT IS IN ROOM. SHE IS LISTENING TO MUSIC, AND SINGING SOFTELY. PT WAS REMINDED TO LOWER HER VOICE. PT RESPONDED, AND TURNED HER MUSIC DOWN. PT APPEARS TO BE IN GOOD SPIRITS.
--- NOTE | 2022-05-20 21:46 | NUR ---
LULU FROM [facility] CALLED AT 2145, TO CONFIRM PT PLACEMENT WITH [facility]. ACCEPTING IS COTS. EXPECT [facility] CARPET AND RUG MENDER AT 0900. THE ADMISSION WAS DONE A NURSE TO NURSE REPORT.
--- NOTE | 2022-05-20 21:49 | NUR ---
[facility] called to confirm acceptance of pt. will followup with transportation details.
--- NOTE | 2022-05-20 23:05 | NUR ---
VERO: [facility] [phone]
--- NOTE | 2022-05-21 02:25 | NUR ---
financial writer agrees with Brenna Cabello, PRATIK assessment.
--- NOTE | 2022-05-21 05:28 | NUR ---
PT WAS IN THE RESTROOM FOR ABOUT TEN MINUTES DURING VITAL TIME. I KNOCKED ON THE BATHROOM DOOR, AND SHE STARTED SCREAMING PROFANITY AT ME. I TRIED TO EXPLAIN TO HER THAT WE NEEDED TO GET HER VITALS, SHE STARTED SCREAMING, AND THROWING HER ARMS AROUND. SECURITY WAS CALLED, AND SHE WAS ESCORTED BACK INTO HER ROOM. S Addendum: 05/21/22 at 0539 by DUNIA PT WAS IN THE RESTROOM FOR ABOUT TEN MINUTES DURING VITAL TIME. STAFF KNOCKED ON THE BATHROOM DOOR, AND SHE STARTED SCREAMING PROFANITY AT THEM. STAFF TRIED TO EXPLAIN TO HER THAT WE NEEDED TO GET HER VITALS, SHE STARTED SCREAMING, AND THROWING HER ARMS AROUND. SECURITY WAS CALLED, AND SHE WAS ESCORTED BACK INTO HER ROOM. SHE CONTINUED TO CUSS AT STAFF. AFTER A BIT OF TIME PASSED, SHE FINALLY ALLOWED US TO GET HER VITALS WITH SECURITY ON STANDBY. SHE HAS BEEN RESTING IN HER ROOM QUIETLY SINCE. SHE HAS NO NEEDS CURRENTLY.
--- NOTE | 2022-05-21 06:30 | NUR ---
Received pt. awake quietly sitting on the edge of her bed, will continue to monitor closely.
--- NOTE | 2022-05-21 08:30 | NUR ---
Pt. was observed to be sitting up in bed responding aloud to internal stimuli, using profanity at times and exhibiting inappropriate laughter. She was non-compliant with physical assessment, and only partially complaint with mental health assessement. Pt. stated in a guarded and slightly irritable manner, "I don't owe you any talks!"
--- NOTE | 2022-05-21 10:01 | NUR ---
Pt. up pacing at this time, responding aloud to internal stimuli. She can be intrusive and attempts to enter other pt's rooms at intervals, but is able to be verbally redirected. Will continue to monitor closely.
--- NOTE | 2022-05-21 10:34 | NUR ---
Pt. is in the bathroom at this time. She continues to pace the unit intermittently.
--- NOTE | 2022-05-21 11:33 | NUR ---
Break RN covering. Patient resting quietly in bed.
--- NOTE | 2022-05-21 12:18 | NUR ---
Per [facility], pt. will be picked-up for transfer to [facility] at 1315.
--- NOTE | 2022-05-21 12:24 | NUR ---
Pt. is sitting up in bed eating lunch at this time.
--- NOTE | 2022-05-21 13:35 | NUR ---
Pt. was picked up by [facility] six horse hitch driver for transport to [facility]. Pt's belongings were inventoried and returned to her by Tech. Pt. was accepted by [facility] and it was reported by [facility] shift that report was given to nurse Andre.
[2022-05-21 13:43] VITALS: BP 150/80
== END 2022-05-21 14:12 | disposition still patient (30) ==
LOC: ER 12:05
DX: F29 Unspecified psychosis not due to a substance or known physiological condition (principal); R45.851 Suicidal ideations; Z20.822 Contact with and (suspected) exposure to COVID-19; F31.9 Bipolar disorder, unspecified; F20.9 Schizophrenia, unspecified; I10 Essential (primary) hypertension; Z59.00 Homelessness unspecified; Z56.0 Unemployment, unspecified; Z88.8 Allergy status to other drugs, medicaments and biological substances
CPT/HCPCS: 36415; 80053; 80305; 80320; 81001; 81025; 84443; 85025; 87811; 99285

== ENCOUNTER 2022-06-11 06:02 | Emergency (ER) | payer MEDICAID | END 2022-06-11 07:05 | disposition left against medical advice (07) | LOC: ER 06:03 | DX: F29 Unspecified psychosis not due to a substance or known physiological condition (principal); Z53.21 Procedure and treatment not carried out due to patient leaving prior to being seen by health care provider ==